=== PATIENT | male | born 1990 | race Caucasian/White ===

== ENCOUNTER 2022-02-09 08:16 | Inpatient (IN) | payer MEDICAID ==
[~2022-02-09] VITALS: Ht 167.6 cm; Wt 68.0 kg
[2022-02-09 09:22] LABS: BASOPHILS % (AUTO) 0.4 % (0.0-2.0); EOSINOPHILS % (AUTO) 1.7 % (1.0-6.0); HEMOGLOBIN 12.5 g/dL (13.5-17.5); LYMPHOCYTES % (AUTO) 21.3 % (22.0-44.0); MEAN CORPUSCULAR HEMOGLOBIN 28.3 pg (26.0-34.0); MEAN CORPUSCULAR HGB CONC 33.7 G/dL (31.0-37.0); MEAN CORPUSCULAR VOLUME 84 fL (80-100); MONOCYTES # (AUTO) 0.7 K/uL (0.1-1.0); MONOCYTES % (AUTO) 7.3 % (2.0-9.0); NEUTROPHILS # (AUTO) 6.6 K/uL (1.8-7.7); NEUTROPHILS % (AUTO) 69.3 % (40.0-70.0); PLATELET COUNT (AUTO) 345 K/uL (150-450); RED BLOOD CELL COUNT(AUTO) 4.42 MIL/uL (4.50-5.90); RED CELL DISTRIBUTION WIDTH 15.5 % (11.5-14.5)
[2022-02-09] MEDS ORDERED: LORazepam 2 MG/ML VIAL ONE (09:30)
[2022-02-09] MEDS ORDERED: HALOPERIDOL LACTATE 5 MG/ML VIAL ONE (09:31)
[2022-02-09] MEDS ORDERED: DiphenhydrAMINE HCL 50 MG/ML VIAL ONE (09:31)
[2022-02-09] MEDS ORDERED: DiphenhydrAMINE HCL 50 MG/ML VIAL IM ONE (09:45)
[2022-02-09] MEDS ORDERED: LORazepam 2 MG/ML VIAL IM ONE (09:45)
[2022-02-09] MEDS ORDERED: HALOPERIDOL LACTATE 5 MG/ML VIAL IM ONE (09:45)
[2022-02-09 09:46] LABS: ANION GAP 8 mmol/L (8-16); CARBON DIOXIDE 27 mmol/L (22-29); CHLORIDE 104 mmol/L (98-107); CREATININE 1.11 mg/dL (0.60-1.30); GLUCOSE,RANDOM 100 mg/dL (70-110); POTASSIUM 4.2 mmol/L (3.5-5.1); SODIUM SERUM 139 mmol/L (136-145); UREA NITROGEN, BLOOD 19 mg/dL (7-18)
[2022-02-09 09:49] LABS: GLOMERULAR FILTR. RATE CALC > 60 mL/min (>60)
[2022-02-09 10:05] LABS: ALANINE AMINOTRANSFERASE 19 U/L (12-78); ALBUMIN 3.6 g/dL (3.4-5.0); ALKALINE PHOSPHATASE 85 U/L (46-116); ASPARTATE AMINOTRANSFERASE 20 U/L (15-37); BILIRUBIN,TOTAL 0.4 mg/dL (0.1-1.0); TOTAL PROTEIN, SERUM 7.6 g/dL (6.4-8.2)
[2022-02-09] MEDS ORDERED: TUBERCULIN, PURIFIED PROTEIN DERIVATIVE 5 TU/0.1 ML SYRINGE ID ONE (12:15)
[2022-02-09] MEDS ORDERED: PROMETHAZINE HCL 25 MG TABLET PO PRN (12:15)
[2022-02-09] MEDS ORDERED: HydrOXYzine PAMOATE 50 MG CAPSULE PO PRN (12:15)
[2022-02-09] MEDS ORDERED: ZOLPIDEM TARTRATE 10 MG TABLET PO PRN (12:15)
[2022-02-09] MEDS ORDERED: GuaiFENesin/D-METHORPHAN [SUGAR-FREE] 200-20MG/10 ML SYRUP UDCUP PO PRN (12:15)
[2022-02-09] MEDS: THIAMINE 100 MG TABLET PO SCH (21:00)
[2022-02-09] MEDS: OLANZapine 5 MG RAPDIS TABLET PO SCH (21:00)
[2022-02-09] MEDS: MELATONIN 5 MG TABLET PO SCH (21:00)
[2022-02-10 08:18] LABS: HEMOGLOBIN A1C 5.2 % (3.8-5.6)
[2022-02-10 08:21] LABS: CHOL/HDL RATIO 2.4 (4.2-7.3); FREE T4 (FREE THYROXINE) 1.48 ng/dL (0.76-1.46); THYROID STIMULATING HORMONE 0.32 uIU/mL (0.36-3.74)
[2022-02-10 09:37] LABS: AMPHET/METH SCREEN,URINE POSITIVE (NEGATIVE); BARBITURATE SCREEN, URINE NEGATIVE (NEGATIVE); BENZODIAZEPINES SCREEN,URINE NEGATIVE (NEGATIVE); CANNABINOID SCREEN,URINE POSITIVE (NEGATIVE); COCAINE SCREEN,URINE NEGATIVE (NEGATIVE); METHADONE SCREEN, URINE NEGATIVE (NEGATIVE); OPIATE SCREEN,URINE NEGATIVE (NEGATIVE)
[2022-02-10 09:41] LABS: PHENCYCLIDINE SCREEN,URINE NEGATIVE (NEGATIVE)
[2022-02-10] MEDS: THIAMINE 100 MG TABLET PO SCH ×2 (10:08→21:00)
[2022-02-10] MEDS: NALTREXONE HCL 50 MG TABLET PO SCH (10:08)
[2022-02-10] MEDS: OMEGA-3/DHA/EPA/FISH OIL 1,000 MG CAPSULE PO SCH (10:08)
[2022-02-10] MEDS: FOLIC ACID 1 MG TABLET PO SCH (10:08)
[2022-02-10] MEDS: MULTIVITAMINS WITH MINERALS, THERAPEUTIC TABLET PO SCH (10:08)
[2022-02-10 17:33] LABS: COVID AG,FIA SOURCE NASAL SWAB
[2022-02-10] MEDS: MELATONIN 5 MG TABLET PO SCH (21:00)
[2022-02-10] MEDS: OLANZapine 5 MG RAPDIS TABLET PO SCH (21:00)
[2022-02-11] MEDS: FOLIC ACID 1 MG TABLET PO SCH ×2 (08:34→09:00)
[2022-02-11] MEDS: MULTIVITAMINS WITH MINERALS, THERAPEUTIC TABLET PO SCH ×2 (08:34→09:00)
[2022-02-11] MEDS: THIAMINE 100 MG TABLET PO SCH ×3 (08:34→21:09)
[2022-02-11] MEDS: NALTREXONE HCL 50 MG TABLET PO SCH ×2 (08:34→09:00)
[2022-02-11] MEDS: OMEGA-3/DHA/EPA/FISH OIL 1,000 MG CAPSULE PO SCH ×2 (08:34→09:00)
[2022-02-11 08:35] VITALS: BP 112/72
[2022-02-11] MEDS: LORazepam 2 MG TABLET PO PRN (13:36)
[2022-02-11 20:51] VITALS: BP 137/96
[2022-02-11] MEDS: MELATONIN 5 MG TABLET PO SCH (21:09)
[2022-02-11] MEDS: OLANZapine 5 MG RAPDIS TABLET PO SCH (21:11)
[2022-02-11 21:20] VITALS: BP 135/80
[2022-02-12 08:00] VITALS: BP 107/70
[2022-02-12] MEDS: MULTIVITAMINS WITH MINERALS, THERAPEUTIC TABLET PO SCH (08:29)
[2022-02-12] MEDS: FOLIC ACID 1 MG TABLET PO SCH (08:29)
[2022-02-12] MEDS: THIAMINE 100 MG TABLET PO SCH ×2 (08:29→16:13)
[2022-02-12] MEDS: OMEGA-3/DHA/EPA/FISH OIL 1,000 MG CAPSULE PO SCH (08:29)
[2022-02-12] MEDS: NALTREXONE HCL 50 MG TABLET PO SCH (08:29)
[2022-02-12 16:00] VITALS: BP 109/64
[2022-02-12] MEDS: OLANZapine 10 MG RAPDIS TABLET PO SCH (20:34)
[2022-02-12] MEDS: MELATONIN 5 MG TABLET PO SCH (20:34)
[2022-02-13 08:00] VITALS: BP 116/68
[2022-02-13] MEDS: NALTREXONE HCL 50 MG TABLET PO SCH ×2 (08:11→09:00)
[2022-02-13] MEDS: OMEGA-3/DHA/EPA/FISH OIL 1,000 MG CAPSULE PO SCH ×2 (08:11→09:00)
[2022-02-13] MEDS: THIAMINE 100 MG TABLET PO SCH ×3 (08:11→16:06)
[2022-02-13] MEDS: MULTIVITAMINS WITH MINERALS, THERAPEUTIC TABLET PO SCH ×2 (08:11→09:00)
[2022-02-13] MEDS: FOLIC ACID 1 MG TABLET PO SCH ×2 (08:11→09:00)
[2022-02-13] MEDS ORDERED: DiphenhydrAMINE HCL 50 MG/ML VIAL IM ONE (12:45)
[2022-02-13] MEDS ORDERED: LORazepam 2 MG/ML VIAL IM ONE (12:45)
[2022-02-13] MEDS ORDERED: HALOPERIDOL LACTATE 5 MG/ML VIAL IM ONE (12:45)
[2022-02-13 16:07] VITALS: BP 131/82
[2022-02-13] MEDS: OLANZapine 10 MG RAPDIS TABLET PO SCH (20:21)
[2022-02-13] MEDS: MELATONIN 5 MG TABLET PO SCH (20:21)
[2022-02-14 08:59] VITALS: BP 106/68
[2022-02-14] MEDS: NALTREXONE HCL 50 MG TABLET PO SCH (09:32)
[2022-02-14] MEDS: THIAMINE 100 MG TABLET PO SCH ×2 (09:32→17:33)
[2022-02-14] MEDS: FOLIC ACID 1 MG TABLET PO SCH (09:32)
[2022-02-14] MEDS: MULTIVITAMINS WITH MINERALS, THERAPEUTIC TABLET PO SCH (09:32)
[2022-02-14] MEDS: OMEGA-3/DHA/EPA/FISH OIL 1,000 MG CAPSULE PO SCH (09:32)
[2022-02-14 13:50] LABS: COVID AG,FIA SOURCE NASAL SWAB
[2022-02-14] MEDS: OLANZapine 5 MG RAPDIS TABLET PO PRN (14:26)
[2022-02-14] MEDS: LORazepam 2 MG TABLET PO PRN (14:26)
[2022-02-14 16:32] VITALS: BP 98/60
[2022-02-14 20:26] VITALS: BP 106/89
[2022-02-14] MEDS: OLANZapine 10 MG RAPDIS TABLET PO SCH (20:47)
[2022-02-14] MEDS: MELATONIN 5 MG TABLET PO SCH (20:48)
[2022-02-15] MEDS: NALTREXONE HCL 50 MG TABLET PO SCH (08:27)
[2022-02-15] MEDS: MULTIVITAMINS WITH MINERALS, THERAPEUTIC TABLET PO SCH (08:27)
[2022-02-15] MEDS: OMEGA-3/DHA/EPA/FISH OIL 1,000 MG CAPSULE PO SCH (08:27)
[2022-02-15] MEDS: THIAMINE 100 MG TABLET PO SCH ×2 (08:27→17:00)
[2022-02-15] MEDS: FOLIC ACID 1 MG TABLET PO SCH (08:27)
[2022-02-15 09:16] VITALS: BP 117/65
[2022-02-15 16:36] VITALS: BP 140/90
[2022-02-15] MEDS: OLANZapine 10 MG RAPDIS TABLET PO SCH (20:15)
[2022-02-15] MEDS: MELATONIN 5 MG TABLET PO SCH (20:15)
[2022-02-16 07:47] LABS: FREE T4 (FREE THYROXINE) 0.98 ng/dL (0.76-1.46); THYROID STIMULATING HORMONE 0.85 uIU/mL (0.36-3.74)
[2022-02-16] MEDS: MULTIVITAMINS WITH MINERALS, THERAPEUTIC TABLET PO SCH (07:57)
[2022-02-16] MEDS: OMEGA-3/DHA/EPA/FISH OIL 1,000 MG CAPSULE PO SCH (07:57)
[2022-02-16] MEDS: THIAMINE 100 MG TABLET PO SCH ×2 (07:57→16:01)
[2022-02-16] MEDS: NALTREXONE HCL 50 MG TABLET PO SCH (07:57)
[2022-02-16] MEDS: FOLIC ACID 1 MG TABLET PO SCH (07:57)
[2022-02-16] MEDS: OLANZapine 5 MG RAPDIS TABLET PO PRN ×2 (07:58→17:12)
[2022-02-16] MEDS: LORazepam 2 MG TABLET PO PRN ×2 (07:58→17:12)
[2022-02-16 08:07] VITALS: BP 113/71
[2022-02-16 16:02] VITALS: BP 112/67
[2022-02-16] MEDS: MELATONIN 5 MG TABLET PO SCH (20:58)
[2022-02-16] MEDS: OLANZapine 10 MG RAPDIS TABLET PO SCH (20:59)
[2022-02-17] MEDS: MULTIVITAMINS WITH MINERALS, THERAPEUTIC TABLET PO SCH (08:35)
[2022-02-17] MEDS: FOLIC ACID 1 MG TABLET PO SCH (08:35)
[2022-02-17] MEDS: OMEGA-3/DHA/EPA/FISH OIL 1,000 MG CAPSULE PO SCH (08:35)
[2022-02-17] MEDS: NALTREXONE HCL 50 MG TABLET PO SCH (08:35)
[2022-02-17] MEDS: THIAMINE 100 MG TABLET PO SCH ×2 (08:35→16:24)
[2022-02-17 08:44] VITALS: BP 114/74
[2022-02-17 17:45] VITALS: BP 104/59
[2022-02-17] MEDS: MELATONIN 5 MG TABLET PO SCH (20:37)
[2022-02-17] MEDS: DIVALPROEX SODIUM 250 MG ER TABLET PO SCH (20:37)
[2022-02-17] MEDS: OLANZapine 10 MG RAPDIS TABLET PO SCH (20:37)
[2022-02-18] MEDS: MULTIVITAMINS WITH MINERALS, THERAPEUTIC TABLET PO SCH (08:02)
[2022-02-18] MEDS: OMEGA-3/DHA/EPA/FISH OIL 1,000 MG CAPSULE PO SCH (08:03)
[2022-02-18] MEDS: NALTREXONE HCL 50 MG TABLET PO SCH (08:03)
[2022-02-18] MEDS: FOLIC ACID 1 MG TABLET PO SCH (08:03)
[2022-02-18] MEDS: THIAMINE 100 MG TABLET PO SCH ×2 (08:03→17:05)
[2022-02-18 08:38] VITALS: BP 116/71
[2022-02-18] MEDS: LORazepam 2 MG TABLET PO PRN (15:12)
[2022-02-18] MEDS ORDERED: MELA5TAB40 PO (15:59)
[2022-02-18] MEDS ORDERED: NALT50TA PO (15:59)
[2022-02-18] MEDS ORDERED: DIVA-85 PO (15:59)
[2022-02-18] MEDS ORDERED: PALI117D IM (15:59)
[2022-02-18] MEDS ORDERED: OMEG-135 PO (15:59)
[2022-02-18] MEDS ORDERED: PALIPERIDONE PALMITATE 234 MG/1.5 ML SYRINGE IM ONE (16:00)
[2022-02-18 17:33] VITALS: BP 120/66
[2022-02-18] MEDS: DIVALPROEX SODIUM 250 MG ER TABLET PO SCH (21:26)
[2022-02-18] MEDS: MELATONIN 5 MG TABLET PO SCH (21:26)
[2022-02-19] MEDS: MULTIVITAMINS WITH MINERALS, THERAPEUTIC TABLET PO SCH (08:12)
[2022-02-19] MEDS: FOLIC ACID 1 MG TABLET PO SCH (08:12)
[2022-02-19] MEDS: OMEGA-3/DHA/EPA/FISH OIL 1,000 MG CAPSULE PO SCH (08:12)
[2022-02-19] MEDS: NALTREXONE HCL 50 MG TABLET PO SCH (08:13)
[2022-02-19 08:33] VITALS: BP 108/65
[2022-02-19 08:46] LABS: COVID AG,FIA SOURCE NASAL SWAB
[2022-02-19] MEDS ORDERED: OMEG-135 PO (13:36)
[2022-02-19] MEDS ORDERED: PALI117D IM (13:36)
[2022-02-19] MEDS ORDERED: MELA5TAB40 PO (13:36)
[2022-02-19] MEDS ORDERED: NALT50TA PO (13:36)
[2022-02-19] MEDS ORDERED: DIVA-85 PO (13:36)
[2022-02-22] MEDS ORDERED: PALIPERIDONE PALMITATE 156 MG/ML SYRINGE IM ONE (09:00)
== END 2022-02-19 14:50 | disposition home or self-care (01) | DRG 750 ==
LOC: EMS 08:28 → B3A 02-10 20:25 → 3EC 02-10 23:20
PROVIDERS: ADMIT Psychiatry & Neurology Psychiatry; ATTEND Psychiatry & Neurology Psychiatry
DX: F20.1 Disorganized schizophrenia (principal); F39 Unspecified mood [affective] disorder; D64.9 Anemia, unspecified; Z20.822 Contact with and (suspected) exposure to COVID-19; F17.210 Nicotine dependence, cigarettes, uncomplicated; E05.90 Thyrotoxicosis, unspecified without thyrotoxic crisis or storm; F15.90 Other stimulant use, unspecified, uncomplicated; Z55.9 Problems related to education and literacy, unspecified; Z59.9 Problem related to housing and economic circumstances, unspecified; Z63.9 Problem related to primary support group, unspecified; Z65.3 Problems related to other legal circumstances; Z78.1 Physical restraint status; Z79.899 Other long term (current) drug therapy; Z91.14 Patient's other noncompliance with medication regimen
CPT/HCPCS: 80053; 80061; 83036; 84439; 84443; 85025; 86592; 87070; 87081; 87186; 87205; 99285; G0480; J1200; J1630; J2060; Q9967

== ENCOUNTER 2022-02-11 10:22 | Emergency (ER) | payer MEDICAID ==
[~2022-02-11] VITALS: Ht 167.6 cm; Wt 66.2 kg
[2022-02-11 19:27] VITALS: BP 133/75
== END 2022-02-11 20:55 | disposition home or self-care (01) ==
LOC: EMS 10:22
DX: Z48.01 Encounter for change or removal of surgical wound dressing (principal); F17.210 Nicotine dependence, cigarettes, uncomplicated
CPT/HCPCS: 99283; Z7502

== ENCOUNTER 2022-08-27 17:59 | Inpatient (IN) | payer MEDICAID ==
[~2022-08-27] VITALS: Ht 180.3 cm; Wt 79.9 kg
[~2022-08-27 17:59] MED LIST: DIVA-85 PO; MELA5TAB40 PO; NALT50TA PO; OMEG-135 PO; PALI117D IM
[2022-08-27] MEDS ORDERED: LORazepam 2 MG/ML VIAL IM ONE (18:15)
[2022-08-27] MEDS ORDERED: DiphenhydrAMINE HCL 50 MG/ML VIAL IM ONE (18:15)
[2022-08-27] MEDS ORDERED: HALOPERIDOL LACTATE 5 MG/ML VIAL IM ONE (18:15)
[2022-08-27 19:04] LABS: BASOPHILS % (AUTO) 0.4 % (0.0-2.0); EOSINOPHILS % (AUTO) 0.1 % (1.0-6.0); HEMATOCRIT 33.3 % (41-53); HEMOGLOBIN 11.6 g/dL (13.5-17.5); LYMPHOCYTES # (AUTO) 0.8 K/uL (1.0-4.8); LYMPHOCYTES % (AUTO) 6.7 % (22.0-44.0); MEAN CORPUSCULAR HEMOGLOBIN 29.9 pg (26.0-34.0); MEAN CORPUSCULAR HGB CONC 34.9 G/dL (31.0-37.0); MEAN CORPUSCULAR VOLUME 86 fL (80-100); MONOCYTES # (AUTO) 1.2 K/uL (0.1-1.0); MONOCYTES % (AUTO) 9.7 % (2.0-9.0); NEUTROPHILS # (AUTO) 10.4 K/uL (1.8-7.7); NEUTROPHILS % (AUTO) 83.1 % (40.0-70.0); PLATELET COUNT (AUTO) 276 K/uL (150-450); RED BLOOD CELL COUNT(AUTO) 3.88 MIL/uL (4.50-5.90); RED CELL DISTRIBUTION WIDTH 13.7 % (11.5-14.5)
[2022-08-27 19:15] LABS: ANION GAP 16 mmol/L (8-16); CALCIUM, TOTAL 8.4 mg/dL (8.8-10.5); CARBON DIOXIDE 21 mmol/L (22-29); CHLORIDE 99 mmol/L (98-107); CREATININE 1.05 mg/dL (0.60-1.30); GLOMERULAR FILTR. RATE CALC > 60 mL/min (>60); GLUCOSE,RANDOM 64 mg/dL (70-110); POTASSIUM 3.3 mmol/L (3.5-5.1); SODIUM SERUM 136 mmol/L (136-145); UREA NITROGEN, BLOOD 27 mg/dL (7-18)
[2022-08-27 19:22] LABS: ALANINE AMINOTRANSFERASE 57 U/L (12-78); ALBUMIN 3.2 g/dL (3.4-5.0); ALKALINE PHOSPHATASE 67 U/L (46-116); ASPARTATE AMINOTRANSFERASE 92 U/L (15-37); BILIRUBIN,TOTAL 0.8 mg/dL (0.1-1.0)
[2022-08-27 19:23] LABS: VALPROIC ACID < 3 mcg/mL (50-100)
[2022-08-27 19:34] LABS: COVID AG,FIA SOURCE NASOPHARYNGEAL
[2022-08-27] MEDS ORDERED: LORazepam 2 MG TABLET PO PRN (22:45)
[2022-08-27] MEDS ORDERED: ZOLPIDEM TARTRATE 10 MG TABLET PO PRN (22:45)
[2022-08-27] MEDS ORDERED: HALOPERIDOL 5 MG TABLET PO PRN (22:45)
[2022-08-28 02:56] VITALS: BP 106/60
[2022-08-28] MEDS ORDERED: DOCUSATE SODIUM 100 MG CAPSULE PO PRN (06:45)
[2022-08-28] MEDS ORDERED: NICOTINE 14 MG/24 HOUR PATCH TD PRN (06:45)
[2022-08-28] MEDS ORDERED: MAGNESIUM HYDROXIDE SUSPENSION 30 ML UDCUP PO PRN (06:45)
[2022-08-28] MEDS ORDERED: ALBUTEROL SULFATE HFA 90 MCG/PUFF 8 GM INHALER IH PRN (06:45)
[2022-08-28] MEDS ORDERED: IBUPROFEN 400 MG TABLET PO PRN (06:45)
[2022-08-28] MEDS ORDERED: LOPERAMIDE HCL 2 MG CAPSULE PO PRN (06:45)
[2022-08-28] MEDS ORDERED: PETROLATUM,WHITE 28 GM JELLY TP PRN (06:45)
[2022-08-28] MEDS ORDERED: CloNIDine HCL 0.1 MG TABLET PO PRN (06:45)
[2022-08-28] MEDS ORDERED: MAG HYDROX/AL HYDROX/SIMETH ES 30 ML SUSPENSION UDCUP PO PRN (06:45)
[2022-08-28] MEDS ORDERED: GuaiFENesin/D-METHORPHAN [SUGAR-FREE] 200-20MG/10 ML SYRUP UDCUP PO PRN (06:45)
[2022-08-28] MEDS ORDERED: ONDANSETRON HCL 4 MG TABLET PO PRN (06:45)
[2022-08-28] MEDS ORDERED: ACETAMINOPHEN 325 MG TABLET PO PRN (06:45)
[2022-08-28] MEDS: OMEGA-3/DHA/EPA/FISH OIL 1,000 MG CAPSULE PO SCH (08:41)
[2022-08-28 08:46] VITALS: BP 102/60
[2022-08-28] MEDS: RisperiDONE 2 MG TABLET PO SCH ×2 (10:32→20:59)
[2022-08-28] MEDS: DIVALPROEX SODIUM 500 MG DR TABLET PO SCH ×2 (10:32→20:59)
[2022-08-28 13:31] LABS: APPEARANCE,URINE CLEAR (CLEAR); BILIRUBIN,URINE NEGATIVE (NEGATIVE); GLUCOSE, URINE (UA) NEGATIVE (NEGATIVE); KETONES,URINE =>150 mg/dL (NEGATIVE); LEUKOCYTE ESTERASE ,URINE TRACE (NEGATIVE); NITRATE,URINE NEGATIVE (NEGATIVE); OCCULT BLOOD,URINE NEGATIVE (NEGATIVE); PH,URINE 5.5 (5.0-8.0); PROTEIN,URINE 30-70 mg/dL (NEGATIVE); SPECIFIC GRAVITIY, URINE 1.029 (1.003-1.030); UROBILINOGEN,URINE <=1.0 mg/dL (<=1.0)
[2022-08-28 13:38] LABS: AMPHET/METH SCREEN,URINE POSITIVE (NEGATIVE); BARBITURATE SCREEN, URINE NEGATIVE (NEGATIVE); BENZODIAZEPINES SCREEN,URINE NEGATIVE (NEGATIVE); CANNABINOID SCREEN,URINE NEGATIVE (NEGATIVE); COCAINE SCREEN,URINE NEGATIVE (NEGATIVE); METHADONE SCREEN, URINE NEGATIVE (NEGATIVE); OPIATE SCREEN,URINE NEGATIVE (NEGATIVE); PHENCYCLIDINE SCREEN,URINE NEGATIVE (NEGATIVE)
[2022-08-28 13:48] LABS: BACTERIA,URINE None Seen /HPF (None Seen); RBC,URINE None Seen /HPF (0-2); SQUAMOUS EPITHELIAL CELL,UR Few /LPF (None Seen)
[2022-08-28 20:00] VITALS: BP 140/89
[2022-08-28] MEDS: MELATONIN 5 MG TABLET PO SCH (20:59)
[2022-08-29] MEDS: OMEGA-3/DHA/EPA/FISH OIL 1,000 MG CAPSULE PO SCH (08:12)
[2022-08-29] MEDS: DIVALPROEX SODIUM 500 MG DR TABLET PO SCH ×2 (08:12→21:00)
[2022-08-29] MEDS: RisperiDONE 2 MG TABLET PO SCH ×2 (08:12→21:00)
[2022-08-29 08:31] VITALS: BP 118/63
[2022-08-29 14:43] VITALS: BP 116/74
[2022-08-29] MEDS: MELATONIN 5 MG TABLET PO SCH (21:00)
[2022-08-30] MEDS ORDERED: POTASSIUM CHLORIDE 20 MEQ ER TABLET PO ONE (06:00)
[2022-08-30] MEDS: DIVALPROEX SODIUM 500 MG DR TABLET PO SCH ×2 (08:32→20:21)
[2022-08-30] MEDS: OMEGA-3/DHA/EPA/FISH OIL 1,000 MG CAPSULE PO SCH (08:32)
[2022-08-30] MEDS: RisperiDONE 2 MG TABLET PO SCH ×2 (08:33→20:22)
[2022-08-30 08:41] VITALS: BP 105/60
[2022-08-30 16:57] VITALS: BP 129/78
[2022-08-30] MEDS: MELATONIN 5 MG TABLET PO SCH (20:20)
[2022-08-30 20:30] VITALS: BP 106/71
[2022-08-31 08:01] LABS: BASOPHILS % (AUTO) 0.3 % (0.0-2.0); EOSINOPHILS % (AUTO) 1.8 % (1.0-6.0); HEMATOCRIT 37.1 % (41-53); HEMOGLOBIN 12.9 g/dL (13.5-17.5); LYMPHOCYTES # (AUTO) 1.4 K/uL (1.0-4.8); LYMPHOCYTES % (AUTO) 18.1 % (22.0-44.0); MEAN CORPUSCULAR HEMOGLOBIN 30.4 pg (26.0-34.0); MEAN CORPUSCULAR HGB CONC 34.6 G/dL (31.0-37.0); MEAN CORPUSCULAR VOLUME 88 fL (80-100); MONOCYTES # (AUTO) 0.6 K/uL (0.1-1.0); NEUTROPHILS # (AUTO) 5.8 K/uL (1.8-7.7); NEUTROPHILS % (AUTO) 72.8 % (40.0-70.0); PLATELET COUNT (AUTO) 323 K/uL (150-450); RED BLOOD CELL COUNT(AUTO) 4.22 MIL/uL (4.50-5.90)
[2022-08-31 08:06] VITALS: BP 132/83
[2022-08-31 08:11] LABS: HEMOGLOBIN A1C 5.3 % (3.8-5.6)
[2022-08-31 08:15] LABS: CHOL/HDL RATIO 3.5 (4.2-7.3)
[2022-08-31 08:17] LABS: ANION GAP 6 mmol/L (8-16); CALCIUM, TOTAL 9.1 mg/dL (8.8-10.5); CARBON DIOXIDE 30 mmol/L (22-29); CHLORIDE 103 mmol/L (98-107); CREATININE 0.69 mg/dL (0.60-1.30); GLOMERULAR FILTR. RATE CALC > 60 mL/min (>60); GLUCOSE,RANDOM 100 mg/dL (70-110); POTASSIUM 4.7 mmol/L (3.5-5.1); SODIUM SERUM 139 mmol/L (136-145); UREA NITROGEN, BLOOD 9 mg/dL (7-18)
[2022-08-31] MEDS: OMEGA-3/DHA/EPA/FISH OIL 1,000 MG CAPSULE PO SCH (08:34)
[2022-08-31] MEDS: DIVALPROEX SODIUM 500 MG DR TABLET PO SCH (08:34)
[2022-08-31] MEDS: RisperiDONE 2 MG TABLET PO SCH (08:34)
[2022-08-31] MEDS ORDERED: MUPIROCIN CALCIUM 2% 22 GM OINTMENT TP SCH (09:45)
[2022-08-31 16:07] VITALS: BP 121/79
== END 2022-08-31 18:35 | disposition short-term general hospital (02) | DRG 750 ==
LOC: EMS 18:18 → B3A 08-28 01:54 → 3EC 08-29 20:49
PROVIDERS: ADMIT Psychiatry & Neurology Psychiatry; ATTEND Psychiatry & Neurology Psychiatry
DX: F25.0 Schizoaffective disorder, bipolar type (principal); L03.115 Cellulitis of right lower limb; D64.9 Anemia, unspecified; E87.6 Hypokalemia; F15.10 Other stimulant abuse, uncomplicated; G47.00 Insomnia, unspecified; F19.10 Other psychoactive substance abuse, uncomplicated; D72.829 Elevated white blood cell count, unspecified; Z20.822 Contact with and (suspected) exposure to COVID-19; F10.10 Alcohol abuse, uncomplicated; Y90.9 Presence of alcohol in blood, level not specified; Z59.00 Homelessness unspecified; Z87.891 Personal history of nicotine dependence; Z91.51 Personal history of suicidal behavior; Z79.899 Other long term (current) drug therapy; Z86.14 Personal history of Methicillin resistant Staphylococcus aureus infection
CPT/HCPCS: 80048; 80053; 80061; 80164; 80307; 81001; 83036; 85025; 99291; G0480; J1200; J1630; J2060; Q9967

== ENCOUNTER 2022-08-29 17:50 | Emergency (ER) | payer MEDICAID ==
[~2022-08-29] VITALS: Ht 170.2 cm; Wt 76.9 kg
[~2022-08-29 17:50] MED LIST changes: -PALI117D IM
[2022-08-29 18:15] VITALS: BP 100/58
[2022-08-29 18:37] LABS: BASOPHILS % (AUTO) 0.2 % (0.0-2.0); HEMOGLOBIN 11.9 g/dL (13.5-17.5); LYMPHOCYTES # (AUTO) 1.4 K/uL (1.0-4.8); LYMPHOCYTES % (AUTO) 14.4 % (22.0-44.0); MEAN CORPUSCULAR HEMOGLOBIN 29.7 pg (26.0-34.0); MEAN CORPUSCULAR VOLUME 87 fL (80-100); MONOCYTES # (AUTO) 0.8 K/uL (0.1-1.0); MONOCYTES % (AUTO) 8.9 % (2.0-9.0); NEUTROPHILS % (AUTO) 74.5 % (40.0-70.0); PLATELET COUNT (AUTO) 286 K/uL (150-450)
[2022-08-29 21:35] LABS: COVID AG,FIA SOURCE NASAL SWAB
== END 2022-08-29 22:03 ==
LOC: EMS 17:50
DX: S81.801A Unspecified open wound, right lower leg, initial encounter (principal); F20.9 Schizophrenia, unspecified; F17.210 Nicotine dependence, cigarettes, uncomplicated; F12.90 Cannabis use, unspecified, uncomplicated; F15.90 Other stimulant use, unspecified, uncomplicated; Z59.00 Homelessness unspecified; Z20.822 Contact with and (suspected) exposure to COVID-19; X58.XXXA Exposure to other specified factors, initial encounter; Y93.89 Activity, other specified; Y92.89 Other specified places as the place of occurrence of the external cause; Y99.8 Other external cause status
CPT/HCPCS: 85025; 99285